=== PATIENT | male | born 1990 | race Caucasian/White ===

== ENCOUNTER 2016-09-25 13:29 | Emergency (ER) | payer SELFPAY ==
--- NOTE | ~2016-09-25 | CR181 ---
[facility] A Service of [facility] & [facility] RADIOLOGY TEXT RESULTS PATIENT: CHARISMA SCHILLING LOCATION: [facility] : [birth year] UNIT #: [id number] AGE: [address]: Codi Gerardo SEX: M ORDER DR: [id number] [facility] [address] [place], [place] [address] [id number] E MR#: [id number] Acc #: [id number] NAME: CHARISMA SCHILLING : 1990 SEX: M STUDY DATE/TIME: 09/25/2016 14:13 UNIT: [facility] ROOM: STUDY DESCRIPTION: CR Lumbar Spine 2 or 3 Views Attending Physician: Codi Gerardo P.A.-C. Ordering Physician: Codi Gerardo P.A.-C. Primary Care Physician: No Primary Care Physician MEDICAL IMAGING REPORT This report is preliminary unless electronic signature is present EXAM Lumbar spine, 09/25/2016. HISTORY 25-year-old male in the ED complaining of 2-3 day history of right-side low back pain. No reported acute injury. TECHNIQUE Three-view lumbar spine series. FINDINGS The examination is negative. No acute or chronic fracture deformity or other osseous lesion is demonstrated. Lumbar disc spaces and lumbar vertebral alignment are within normal limits. IMPRESSION Negative lumbar spine series. Dictated by... Pankaj Hendricks M.D. THIS IS AN ELECTRONICALLY VERIFIED REPORT Pankaj Hendricks M.D. at 09/25/2016 8:51 PM FREDAW/teri TD: 09/25/2016 17:03 JOB #: [id number] MEDICAL IMAGING REPORT Page 1 of 1 COPY
[~2016-09-25 13:29] MED LIST: DICLOFENAC PO; NO MEDICATIONS
== END 2016-09-25 14:38 | disposition home or self-care (01) ==
LOC: CFTX 13:29 → CED 13:29 → CFTX 14:02
DX: M54.16 Radiculopathy, lumbar region (principal); I10 Essential (primary) hypertension; J45.909 Unspecified asthma, uncomplicated; F17.210 Nicotine dependence, cigarettes, uncomplicated
CPT/HCPCS: 72100; 99283

== ENCOUNTER 2016-10-16 13:25 | Emergency (ER) | payer OTHER | END 2016-10-16 16:20 | disposition home or self-care (01) | LOC: CFTX 13:25 → CED 13:25 → CFTX 15:07 | DX: M54.42 Lumbago with sciatica, left side (principal); M54.41 Lumbago with sciatica, right side; F17.210 Nicotine dependence, cigarettes, uncomplicated | CPT/HCPCS: 99282 ==

== ENCOUNTER 2016-10-20 12:03 | Emergency (ER) | payer OTHER ==
--- NOTE | ~2016-10-20 | EKG ---
PATIENT: CHARISMA SCHILLING UNIT #: [id number] Ventricular Rate: 68 BPM Atrial Rate: 68 BPM P-R Interval: 170 ms QRS Duration: 90 ms Q-T Interval: 370 ms QTC Calculation(Bezet): 393 ms P Sharps: 70 degrees Calculated R Sharps: 69 degrees Calculated T Sharps: 20 degrees Diagnosis Line: Normal sinus rhythm with sinus arrhythmia Diagnosis Line: Normal ECG Diagnosis Line: When compared with ECG of 06-MAR-2016 06:23, Diagnosis Line: No significant change was found Diagnosis Line: Confirmed by STEFFANY HOUSE MD ([id number]) on 10/22/2016 Diagnosis Line: 4:25:47 PM INTERPRETING MD: LACY BARRIGA
== END 2016-10-20 12:49 | disposition home or self-care (01) ==
LOC: CED 12:03
DX: R07.89 Other chest pain (principal); F17.200 Nicotine dependence, unspecified, uncomplicated
CPT/HCPCS: 93005; 96372; 99284; J1885